=== PATIENT | female | born 1975 | race Caucasian/White ===

== ENCOUNTER 2024-03-21 07:31 | Day surgery (SDC) | payer BC ==
[2024-03-20 12:14] LABS: Specific Gravity 1.005 (1.005-1.030); Specific Gravity < 1.005 (1.005-1.030); Urine Bilirubin NEGATIVE (Negative); Urine Blood Negative (Negative); Urine Clarity Clear (Clear); Urine Color Colorless (Yellow); Urine Glucose NEGATIVE (Negative); Urine Ketones NEGATIVE (Negative); Urine Microscopic Reflex YN NO UMIC; Urine Nitrite NEGATIVE (Negative); Urine Protein NEGATIVE (Negative); Urine Urobilinogen Normal (Normal)
[2024-03-20 12:16] LABS: Absolute Lymphocytes (CBC) 1.6 K/uL (0.7-4.9); Absolute Monocytes 0.4 K/uL (0.1-1.3); Absolute Neutrophil 3.4 K/uL (1.8-8.0); Basophils % 0.5 % (0-1.3); Eosinophils % 0.9 % (0-4.4); Hematocrit 37.4 % (36.0-45.0); Hemoglobin 12.4 g/dL (12.0-15.0); MCH 32.5 pg (27.0-35.0); MCHC 33.3 g/dL (32.0-36.0); MCV 97.7 fL (80-100); MPV 8.7 fL (7.6-11.3); Monocytes % 6.6 % (3.3-12.3); Platelets 273 thou/uL (152-406); RBC Red Blood Cell Count 3.83 M/uL (3.86-4.86); Red Cell Distribution Width 12.6 % (12.1-15.2)
[2024-03-21] MEDS ORDERED: SCOPOLAMINE HYDROBROMIDE PATCH TD ONE (07:35)
[2024-03-21] MEDS: Ringers Lactate 1,000 ML IV ONE (07:50)
[2024-03-21] MEDS ORDERED: propofoL 200 MG/20 ML VIAL IV ONE (08:23)
[2024-03-21] MEDS ORDERED: MIDAZOLAM HCL 2 MG/2 ML INJ ONE (08:23)
[2024-03-21] MEDS ORDERED: FENTANYL CITR 100 MCG/2 ML ONE (08:23)
[2024-03-21] MEDS ORDERED: KETOROLAC 30 MG/ML INJ ONE (08:24)
[2024-03-21] MEDS ORDERED: LIDOCAINE 1% MPF 5 ML VIAL ONE (08:24)
[2024-03-21] MEDS ORDERED: ONDANSETRON 4 MG/2 ML VIAL ONE (08:24)
[2024-03-21] MEDS ORDERED: ROCURONIUM 50 MG/5 ML VIAL IV ONE ×2 (08:25→10:00)
[2024-03-21] MEDS: CEFAZOLIN SODIUM 2 GM/VIAL ONE (08:32)
[2024-03-21] MEDS: BUPIVACAINE 0.25% PF 30 ML VIAL ONE (09:11)
[2024-03-21] MEDS ORDERED: Ringers Lactate 1,000 ML IV ONE ×2 (09:58→12:57)
[2024-03-21] MEDS ORDERED: NS 0.9% VIAL 10 ML ONE (10:18)
[2024-03-21] MEDS ORDERED: LANO/MINERAL OIL/PETRO 3.5 GM ONE (10:24)
[2024-03-21] MEDS ORDERED: Mastisol Adhesive Liq ONE (10:35)
[2024-03-21] MEDS ORDERED: NEOSTIGMINE 1 MG/ML -10 ML VIAL ONE (10:43)
[2024-03-21] MEDS: HYDROMORPHONE HCL 1 MG/ML INJ ONE (11:16)
[2024-03-21] MEDS: MEPERIDINE HCL 25 MG/ML SYR ONE (11:33)
[2024-03-21 11:44] VITALS: O2SAT 100
[2024-03-21] MEDS: PROMETHAZINE INJ 25 MG/ML AMP ONE (11:48)
[2024-03-21 14:05] VITALS: BP 103/59; TEMP 98.9
--- NOTE | 2024-03-25 08:22 | OP ---
Date of Procedure: 03/21/2024 Surgeon: Lucille Pepe MD Pecan Grower: Elvia Martin Preoperative Diagnoses: AUB-L/endometrial hyperplasia on pathology, left complex adnexal mass, and m ultiple cysts on left ovary. Postoperative Diagnoses: AUB-L/ hyperplasia/endometriosis of bilateral lateral pelvic side goddard, uterosacral ligament, pararectal spaces, and anterior cul-de-sac. Procedures Performed: 1.Total laparoscopic hysterectomy and bilateral salpingectomy. 2.Endometriosis excision. Estimated Blood Loss: Minimal. Specimens: Uterus, bilateral tubes, endometriosis from the implants as mentioned above, lateral side goddard, uterosacral ligaments, pararectal space, and anterior cul-de-sac, all these were attached to t he uterine specimen along with the serosa, was excised and included. The ovaries were completely unr emarkable. Findings: Endometriosis was found on the lateral sidewalls close to the distal pelvic ureter, and ex tending between the ureter and the uterosacral ligament. On the uterosacral ligament, the pararectal space posterior cul-de-sac, implant was seen on the anterior cul-de-sac as well. All the se implants were excised along with specimen of the uterus. The implant on the right uterosacral as well as the endometriosis on the superficial peritoneum on top of the bowel were the only 2 that were cauterized. Rest of the endometrial implants were mostly removed. There could be some left on the posterior cul-de-sac along the anterior rectal wall. Ovaries were completely unremarkable and no evidence of . Indications: The patient is a 48-year-old, known to the practice for a long time, presented for well -woman exam, noted to have irregular prolonged periods, infrequent in occurrence that could last up t o 10 days, although not heavy. Then she was evaluated with ultrasound and it showed multiple cysts o n the left side. There was a complex cystic mass or multiple small cysts that were not remarkable. CA-125 and all the markers slightly elevated, but mostly within normal limits. The endome trium appeared to be only minimally thickened and on endometrial sampling with hysteroscopy, D and C, the pathology showed endometrial hyperplasia with glandular crowding nuclei and nucleoli prominent, but no atypia is noted on the pathology description. We discussed the options for the patient, including conservative management without doing anything. The second option was to use the levonorgestrel IUD to thin the endometrial hyperplasia for endometri al protection and evaluation of the left adnexal mass either conservatively or surgically. Then, the other option was hysterectomy with removal of the tubes and possibly left ovary as this has a comple x cystic mass. All this was explained in the context of perimenopause and menopausal symptoms, and n eed for hormone therapy. After she was re-consented with her in the preop, and answers were given to his satisfaction. She was taken back and placed in supine fashion on the operating table. After general anesthesia, 2 g of Ancef was given. Abdomen was prepped with ChloraPrep; vulva, vagina , and perineum with Betadine and draped in a sterile fashion. Arms were tucked by the side. SCDs we re started. Time-out was done, positioning checked, and procedure started. Speculum placed to expos e the cervix. Anterior lip was grasped with 2 Allis clamps. A large cup uterine manipulator was int roduced and fixed in place. Rogers was attached to the drainage bag and inserted. This area was then draped. A 1 cm infraumbilical incision in a vertical fashion was made with the scalpel using the op en laparoscopy technique. Fascia was incised, tagged with 0 Vicryl sutures on both sides. Peritoneu m entered bluntly. S retractors were placed. Then, after adequate insufflation, site of entry was c hecked and was unremarkable. Upper abdominal surface was unremarkable as well. The appendix was com pletely negative. The patient was placed in Trendelenburg position. A 5 mm left lower quadrant and a 10 suprapubic ports were placed under direct vision. Endometriosis excision: Endometrium was extensive and present on the lateral goddard, so plan was to d issect this first and then proceed with hysterectomy. I started with stripping off the endometriosis on the right lateral wall. The peritoneal opening was made parallel to the ureter, superior to it, and lateral and dissection carried medially releasing the ureter and making it free, so the peritoneu m could be stripped off the endometriosis all the way to the uterosacral . The endometrios is from the left lateral wall was also carefully dissected from the ureter and found to be more attac hed to the uterosacral ligament. There were several of this attached in between to the peritoneum. All the implants here from the left side were opened up from lateral to medial and stripped off under lying tissues, making sure that the area between the uterosacral and the uterine artery wi thout any problems and dissecting the pararectal spaces. This was also a specimen that was most jeri rable. After all endometriosis was stripped, it was handed out for permanent pathology. LigaSure was used to take down the utero-ovarian ligament, mesosalpinx, and tube dissectio n of the anterior peritoneum of the broad ligament towards the uterine vessels. The posterior perito neum also was dissected anteriorly. The blood supply to the uterus was cut down with the help of the LigaSure, and this was cauterized and cut. Then, cardinal ligaments were taken down as well in a si milar fashion. On the opposite side, similar dissection was performed taking down the round ligament , mesosalpinx, uterine ligament, and the broad ligament posteriorly and anteriorly, and then excising the endometriosis from the uterosacral ligament and the distal portion of the ureter, then stripping this medially, then exposing the vessels. The vessels were taken down and then cardinal ligaments w ere taken down. The anterior bladder wall was dissected carefully and so was the posterior, and then colpotomy perfor med with a monopolar hook blade on coagulation current. The specimen was detached and pulled out thr ough the vagina. Both the ovaries appeared to be completely unremarkable. Thorough irrigation and s uction was performed. Interrupted 0 PDS sutures were placed, two simple angle sutures and three figu ild-ml-nrrly in the middle with excellent apposition and support. EEA Sizer was placed in the vagina was completely normal. Once the closure was done, all the trocars were removed and desufflated. Fascia at the umbilicus chris sed under direct vision. Local injection with lidocaine was given at all sites . Tagged 0 Vicryl sutures tied to each other with the fascia on the umbilical site. A simple 0 Vicr yl suture was placed on the fascia on the suprapubic site. Skin was closed with interrupted 4-0 George cryl. Rogers and vaginal packing were removed. Instrument, needle, and sponge counts were correct at the end of the case. was debriefed. I preserved b oth ovaries and SK/MODL Voice ID: [id number] Report ID: [id number]
== END 2024-03-21 15:08 | disposition home or self-care (01) ==
LOC: OR 07:31
PROVIDERS: ATTEND Obstetrics & Gynecology
PROC: 0UT7FZZ Resection of Bilateral Fallopian Tubes, Via Natural or Artificial Opening With Percutaneous Endoscopic Assistance (ICD-10-PCS; 2024-03-21)
PROC: 0DBW4ZZ Excision of Peritoneum, Percutaneous Endoscopic Approach (ICD-10-PCS; 2024-03-21)
PROC: 0UT9FZZ Resection of Uterus, Via Natural or Artificial Opening With Percutaneous Endoscopic Assistance (ICD-10-PCS; principal; 2024-03-21 08:30)
DX: N83.292 Other ovarian cyst, left side (principal); N92.6 Irregular menstruation, unspecified; N80.00 Endometriosis of the uterus, unspecified; D25.9 Leiomyoma of uterus, unspecified
CPT/HCPCS: 58571; 58662; 85025; 36415; 86900; 86850; 81025; 86901; 88307; 81003; J2550; A4216; J2704; J2710; J2003; J2250; J3010; J2175; J1171; J2405; J7120 ×3